=== PATIENT | female | born 1980 | race Caucasian/White ===

== ENCOUNTER 2022-03-15 12:08 | Outpatient (CLI) | payer BC, SELFPAY ==
--- NOTE | ~2022-03-15 | DEXA_ITS ---
Bone Density Report Name: CARMEN GÓMEZ Age: 42 Sex: Female Ethnicity: White Date of : 1980 Indication: postmenopausal; asthma or emphysema; hysterectomy; Referring Provider: Rebecca Rodriguez Study: Bone densitometry was performed. Exam Date: March 15, 2022 Accession number: [id number] Bone Density: Region BMD T-score Z-score Classification AP Spine (L1-L4) 1.200 1.4 1.6 Normal Femoral Neck (Left) 0.928 0.7 1.0 Normal Total Hip (Left) 1.081 1.1 1.3 Normal Femoral Neck (Right) 0.952 0.9 1.2 Normal Total Hip (Right) 1.091 1.2 1.4 Normal Total Hip Mean 1.086 1.2 1.4 Normal World Health Organization criteria for BMD impression classify patients as: Normal (T-score at or above -1.0), Osteopenia (T-score between -1.0 and -2.5), or Osteoporosis (T-score at or below -2.5). 10-year Fracture Risk: FRAX not reported because: All T-scores for Spine Total, Hip Total, Femoral Neck at or above -1.0 Clinical Information Provided by Patient: Is being treated for osteoporosis Has used the following medications: HRT (i.e. estrogen/hormone therapy), Calcium Has the following medical conditions: Asthma or Emphysema, Hysterectomy Patient maximum height was 65.2 Menopause Age: 27 No regular weight bearing exercise Does not regularly consume dairy products Drinks caffeinated beverages Onset of menses at age 14 Number of children 3 Impression: The patient has normal bone mass. Discussion: It is important to ask patients whether they are taking their medications and to encourage continued and appropriate compliance with their osteoporosis therapies to reduce fracture risk. It is also important to review their risk factors and encourage appropriate calcium and vitamin D intakes, exercise, fall prevention and other lifestyle measures. Follow-Up: Consider a repeat BMD and Vertebral Fracture Assessment (VFA) exam in 2 years or sooner if medically necessary, to reassess this patient's status. Reported by: [facility] on 03/15/2022 1:16:00 PM. Reviewed, dictated and finalized at location A. [facility]ITALJodie
--- NOTE | ~2022-03-15 | MM_ITS ---
EXAMINATION: MM screening jame BI w heather HISTORY: Screening mammogram TECHNIQUE: Craniocaudal and mediolateral oblique 3-D tomosynthesis images were obtained and synthetic 2-D images were generated. CAD analysis was submitted and interpreted. COMPARISON: None, baseline BREAST PARENCHYMAL COMPOSITION: The breasts are heterogeneously dense, which may obscure small masses . FINDINGS: RIGHT BREAST: There is no suspicious mass, calcification, or architectural distortion to suggest iveth gnancy. LEFT BREAST: There is focal asymmetry in the middle third of the outer breast. IMPRESSION: 1. Focal asymmetry of the left breast. 2. Additional mammographic views and possible breast ultrasound are recommended. BI-RADS Category 0: Incomplete: Needs additional imaging evaluation. Reviewed, dictated and finalized at location A. IMPRESSION: 1. Focal asymmetry of the left breast. 2. Additional mammographic views and possible breast ultrasound are recommended . BI-RADS Category 0: Incomplete: Needs additional imaging evaluation.
== END 2022-03-15 12:09 ==
PROVIDERS: PCP Advanced Practice Midwife; Visit Provider Advanced Practice Midwife
DX: Z12.31 Encounter for screening mammogram for malignant neoplasm of breast (principal); Z78.0 Asymptomatic menopausal state; M85.80 Other specified disorders of bone density and structure, unspecified site; R92.8 Other abnormal and inconclusive findings on diagnostic imaging of breast
CPT/HCPCS: 77063; 77067; 77080

== ENCOUNTER 2022-03-30 07:42 | Outpatient (CLI) | payer BC, SELFPAY ==
--- NOTE | ~2022-03-30 | MMUS_ITS ---
EXAMINATION: MM diagnostic jame LT w heather, US breast LT limited HISTORY: Focal asymmetry reported in middle third of outer breast on 03/15/2022 screening mammogram TECHNIQUE: Additional 3-D tomosynthesis images of were performed and synthetic 2-D images were genera rolando. CAD analysis was submitted and interpreted. High resolution upper outer and lower-outer quadrant left breast ultrasound was performed. COMPARISON: 03/15/2022 bilateral screening mammogram FINDINGS: MAMMOGRAPHIC FINDINGS: 4 x 5.7 mm circumscribed mass is suggested in the outer mid left breast (coned ML Tomosynthesis image 15/) ULTRASOUND: 3:00 2 cm from nipple: Parallel circumscribed 2.4 x 3.5 x 3.6 mm hypoechoic lesion without internal v ascularity or posterior shadowing No suspicious mass or shadowing is detected. IMPRESSION: 1. No mammographic evidence of malignancy 2. Routine annual mammographic screening is recommended BI-RADS Category 2: Benign finding(s). Reviewed, dictated and finalized at location A. IMPRESSION: 1. No mammographic evidence of malignancy 2. Routine annual mammographic screening is recommended BI-RADS Category 2: Benign finding(s).
== END 2022-03-30 07:43 ==
LOC: MICIMG 07:42
PROVIDERS: PCP Advanced Practice Midwife; Visit Provider Advanced Practice Midwife
DX: R92.8 Other abnormal and inconclusive findings on diagnostic imaging of breast (principal)
CPT/HCPCS: 76642; 77061; 77065; G0279

== ENCOUNTER 2024-04-10 08:26 | Outpatient (CLI) | payer BC, SELFPAY ==
--- NOTE | ~2024-04-10 | MR_ITS ---
EXAMINATION: MR shoulder RT wo con DATE: 04/10/2024 09:21 INDICATION: Right shoulder pain with bicipital tendinitis TECHNIQUE: Magnetic resonance imaging (MRI) of the right shoulder was performed without intravenous c ontrast. Sequences included axial PD-weighted FS FSE, coronal oblique PD-weighted FS FSE, coronal obl ique T2-weighted FS FSE, sagittal PD-weighted FS FSE, and sagittal T1-weighted SE. COMPARISON: None. FINDINGS: Coracoacromial arch: The acromion undersurface is curved in morphology (type II). The coracoacromial ligament is normal. M ild acromioclavicular osteoarthritis. Rotator cuff: Mild tendinopathy with tiny intrasubstance split tear at the superior facet footplate of the distal s upraspinatus tendon. The infraspinatus, teres minor and subscapularis tendons are normal. Normal rota tor cuff muscle bulk and signal. Biceps tendon, glenoid labrum and glenohumeral cartilage: Long head of the biceps tendon is normal. Glenoid labrum is normal. Glenohumeral cartilage is normal. Fluid: Physiologic amount of fluid in the glenohumeral joint and biceps tendon sheath. No loose osteochondr al bodies. No abnormal increased fluid signal in the subacromial/subdeltoid bursa to suggest bursitis . Bones: There is focal marrow edema and mild cystic change underlying the superior facet footplate of the gre ater tuberosity likely related to the supraspinatus tendon disease. Marrow signal is otherwise normal . No fracture or pathologic marrow replacing process. IMPRESSION: 1. Mild supraspinatus tendinopathy with tiny intrasubstance split tear at the superior facet footplat e. Reviewed, dictated and finalized at location B. IMPRESSION: 1. Mild supraspinatus tendinopathy with tiny intrasubstance split tear at the s uperior facet footplate.
== END 2024-04-10 08:27 | disposition home or self-care (01) ==
LOC: ANHIMG 08:33
PROVIDERS: PCP Family Medicine; Visit Provider Physician Assistant Surgical
DX: M75.21 Bicipital tendinitis, right shoulder (principal)
CPT/HCPCS: 73221

== ENCOUNTER 2024-07-24 01:33 | Day surgery (SDC) | payer BC, SELFPAY ==
[2024-07-12 10:24] VITALS: BMI 30.9
--- NOTE | 2024-07-12 10:29 | PC.NURSE ---
Report to the Outpatient Waiting Room, entrance under the green pavilion located off [facility], at time _1030_ on date _[id number]_. Planned Procedure Time: _1230_.? Time changes happen often and if your time is changed the preop area will call you the afternoon before. - You and your visitor will be asked to self-screen and do not enter if you have any COVID symptoms. Please call surgeon if you need to reschedule. - A mask is optional within the hospital at this time. Patients may have clear liquids (water, carbonated beverages, clear teas, apple juice) until 3 hours prior to surgery with a maximum of 20 ounces. - No food from midnight until time of surgery and no smoking Take only the following medications with a SIP of water on the morning of surgery: __Paroxetine and estradiol DO NOT STOP ANY OF YOUR OTHER PRESCRIPTION MEDICATIONS PRIOR TO SURGERY EXCEPT THE FOLLOWING Medications to discontinue per physician ___Diclofenac stop 07-17-2024, Vitamins stop 07-21-2024. Patient is holding Methotrexate per her arthritis Dr's instructions with last dose being on [phone] Please no make-up, nail citizen of [place], hairspray, perfume, deodorant, or body powder the day of surgery.? No jewelry (including any body piercings) or valuables the day of surgery, leave them at home.? Please take a shower or bath the night before, or the morning of, surgery with an antibacterial soap.? Wear comfortable, loose fitting clothing.? . - Jewelry must be removed prior to entering the operating room.? Rings and piercings that are not removed may be cut off. - The hospital will not accept responsibility for valuables.? - Please leave all valuables, including medications, at home the day of surgery. If you are going home after surgery, a licensed otr van cdl truck driver must drive you home.? - NO public transportation without another adult if you receive anesthesia. - We recommend that an adult stay with you for 24 hours following discharge. - We also recommend that you do not drive, make important decision, drink alcoholic beverages, or take any drugs that were not prescribed by your health care provider for at least 24 hours after your discharge time. Follow any additional instructions given to you from your surgeon. Telephone instructions given to _Jc_and asked if any additional questions and then verbalized understanding. Patient advised to call surgeon office or pre surgery nurse liaison [phone] if any additional questions.
[2024-07-24] VITALS (8 sets, daily range): BP systolic 108–130; BP diastolic 68–83; PULSE 66–79; RESP 15–18; TEMP 36.4–36.6; O2SAT 96–100
--- NOTE | 2024-07-24 07:21 | WPDHPUPDATE1 ---
History and Physical Update Update Date/Time: 07/24/24 07:21 History and Physical has been reviewed, including an updated exam of the patient. There are NO changes in the patient's condition. Risks, benefits, and alternatives have been discussed and questions answered. Patient agrees to proceed with procedure.
[2024-07-24] MEDS: LACTATED RINGERS 1,000 ML 30 ML IV CONT ×2 (10:45→12:46)
[2024-07-24] MEDS: EPINEPHrine HCL INJ 1 MG/ML AMPUL IRRIGATION (10:48)
--- NOTE | 2024-07-24 10:57 | WPDANESEPPF ---
Anes - Initial Pre Proc Eval Procedure: Operation Date: 07/24/24 12:30 Proposed Procedures p Right Shoulder Arthroscopic Rotator Cuff Repair with Subacromial Decompression - Jose Enrique Johnson MD Date/Time: 07/24/24 10:57 Surgeon: Jose Enrique Johnson MD Pre Op Diagnosis: Partial Thickness Rot Cuf Tear - Rt side Patient Data Age: 44 Gender: F Height: 1.65 m Weight: 84.5 kg Allergies Allergy/AdvReac Type Severity Reaction Status Date / Time No Known Allergies Allergy Mild Verified 07/24/24 12:17 Home Medications Medication Instructions Recorded Confirmed Type albuterol sulfate 90 mcg/actuation 2 inh inhalation PRN PRN Shortness 10/04/19 07/12/24 History aerosol inhaler (ProAir HFA) Of Breath Or Wheezing estradiol 1 mg tablet 1 mg PO DAILY 11/02/22 07/24/24 History paroxetine HCl 10 mg tablet (Paxil) 10 mg PO DAILY 05/12/23 07/12/24 History cyclobenzaprine 10 mg tablet 10 mg PO TID PRN Spasms 06/04/24 07/12/24 History diclofenac sodium 75 mg 75 mg PO BID 06/04/24 07/24/24 History tablet,delayed release folic acid 1 mg tablet 1 mg PO DAILY 06/04/24 07/12/24 History methotrexate sodium 2.5 mg tablet 15 mg PO WEEKLY 06/04/24 07/12/24 History motvrtrr-vus-isixd ac 400 1 tablet PO DAILY 06/04/24 07/24/24 History mcg-calcium carb 500 mg-vit K1 20 mcg tablet (Women's 50 Plus Multivitamin) omeprazole 40 mg capsule,delayed 40 mg PO DAILY 06/04/24 07/12/24 History release phentermine 37.5 mg tablet 37.5 mg PO DAILY #30 tabs 06/05/24 07/12/24 Rx hydrocodone 5 mg-acetaminophen 325 1 - 2 tablet PO Q4-6H PRN pain #30 07/24/24 Rx mg tablet tabs Patient hx anesthesia problems: none Family hx anesthesia problems: none Results Review: All pre-operative results and documents have been reviewed as part of the pre-operative evaluation. [facility] Past Medical History Medical History Asthma Biceps tendinitis BMI 34.0-34.9,adult COVID-19 long hauler Endometriosis Rotator cuff impingement syndrome of right shoulder Shoulder pain, right Subclinical hyperthyroidism Surgical History Surgical History S/P FR[facility]LIN (total abdominal hysterectomy) Family History Family History Father Lung cancer Mother Hypertension Social History Social History Social History: Smoking packs per day: 1 Smoking cigarettes per day: 20.0 Years smoked: 15 Smoking pack-years: 15.00 Smoking status: Former smoker Tobacco type: cigarettes Second hand tobacco smoke exposure: Yes Smoking end date: 09/11/16 Alcohol intake: current Alcohol use details: Occasionally Substance use: never Substance use type: does not use Do You Feel Safe in your Home?: Yes Lack of Transportation: No Lack of Food: Never True Current Housing: I Have Housing Concerned About Future Housing: No Difficulty Paying Gas/Electric Bills: No Difficulty Paying for Meds: No Currently Unemployed: No Education: High School Diploma/GED Difficulty w/ Childcare or Family Care: No Living arrangements: with family Occupation/Education: occupation 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
[2024-07-24] MEDS: KETOROLAC 15 MG/ML VIAL (*BKC) IV PUSH (11:00)
[2024-07-24] MEDS: ACETAMINOPHEN 500 MG TABLET 1000 MG PO (11:00)
[2024-07-24] MEDS: ceFAZolin 2 GM/D5W 50 ML 2 GM/50 ML BAG IVPB (11:15)
--- NOTE | 2024-07-24 12:00 | WPDANESPNB ---
Anes - Peripheral Nerve Block Date/Time: 07/24/24 12:00 I have discussed with the patient/family/POA the placement of a peripheral nerve block for post-operative pain management, including associated risks, benefits, complications, and side effects. Alternative methods of post-operative analgesia were detailed. Questions were solicited and answers provided to the satisfaction of the patient/family/POA. Time-Out: A pre-procedural Time-Out was completed immediately before starting the procedure and confirmed: Patient Identification, Site, Procedure, Patient Position and the Availability of Requisite Equipment. Clinical Indications: Acute post-operative pain management requested by the operative surgeon. Nerve Block Insertion Note Anes-nerve block: interscalene right Patient position: supine Skin prep: chlorhexidine Needle: 22 gauge, stimulating, insulated echogenic needle. Needle length: 50 mm Technique: ultrasound Injectate: bupivacaine 0.5% with epi 5 mcg/ml (20cc- no epi) Observations: tolerated well Complications: none Procedure start time:: 1107 Procedure end time:: 1111
--- NOTE | 2024-07-24 13:19 | P.OP_ITS ---
Procedure Note - Detailed Date of Procedure 07/24/24 Pre-op Diagnosis Partial Thickness rotator cuff tear right shoulder. Impingement syndrome right shoulder. Post-op Diagnosis Same Procedure Performed Right shoulder arthroscopic rotator cuff repair with subacromial decompression. Surgeon Jose Enrique Johnson MD Ssrs Developer Marycruz Schwab PA-C Anesthesia General and Regional (Interscalene block) Indications Partial-thickness intrasubstance tear noted on MRI with some concern for small bursal side tear. Evidence of external impingement clinically. Failed conservative treatment including injections and physical therapy. Findings Low-grade bursal sided tear at the anterior supraspinatus. Very low-grade articular side tear. Hyperemia of the rotator cuff noted. Evidence of subacromial impingement on the undersurface of the anterolateral acromion and coracoacromial ligament. Given the MRI finding of interstitial tearing as well, the Regeneten implant with 5 CAREY anchors and 2 peek bone anchors, was used to repair the partial-thickness supraspinatus tearing. Subacromial decompression performed. The remaining structures were normal. Description of Procedure Preoperative antibiotics were given. The patient was brought to the operating room. Careful positioning in the beach chair was accomplished. The head neck were carefully positioned. A small bump was placed under the shoulder. The shoulder was prepped and draped in the usual sterile fashion. Examination under anesthesia performed. The shoulder had some laxity but no other significant findings. Standard posterior and anterior arthroscopic portals were established. The articular cartilage and labrum was normal. The biceps was normal. The subscapularis and rotator cuff were essentially normal although there was minimal articular sided fraying at the anterior supraspinatus. Attention was turned to the subacromial space. A complete bursectomy was performed. There was evidence of hyperemia and subacromial impingement. An accessory lateral portal was created. The acromion was clearly visualized. The coracoacromial ligament was released. Careful acromioplasty was performed. Loose bone fragments were carefully irrigated from the joint. An accessory superolateral portal was used for anchor placement. The large Regeneten graft was inserted and deployed. Multiple CAREY anchors were placed medially with good purchase. Bone anchors x2 were placed laterally. The anterior aspect of the supraspinatus adjacent to the biceps was previously marked with a PDS suture to avoid placing a soft tissue anchor in the biceps. The arthroscopic instruments were removed. The wounds were closed with interrupted 4-0 Monocryl suture followed by Steri-Strips. A sterile dressing was applied with a sling. The patient was extubated and brought to the recovery room in stable condition. There were no complications. Implants Regeneten collagen implant. Five CAREY soft tissue anchors. Two peek bone anchors. Estimated Blood Loss 10 Drains No Packing No Pathology None sent Complications No immediate complications Condition Stable Disposition PACU [facility] Billing Surgery - Charge Forward: Surgery Billing
== END 2024-07-24 14:25 | disposition home or self-care (01) ==
PROVIDERS: PCP Family Medicine; Visit Provider Orthopaedic Surgery
PROC: (CPT 29805; principal; 2024-07-24 12:30)
DX: M75.111 Incomplete rotator cuff tear or rupture of right shoulder, not specified as traumatic (principal); M75.41 Impingement syndrome of right shoulder; G89.18 Other acute postprocedural pain; J45.909 Unspecified asthma, uncomplicated; N80.9 Endometriosis, unspecified; E05.90 Thyrotoxicosis, unspecified without thyrotoxic crisis or storm; E66.9 Obesity, unspecified; Z68.30 Body mass index [BMI] 30.0-30.9, adult; Z79.51 Long term (current) use of inhaled steroids; Z79.891 Long term (current) use of opiate analgesic; Z98.890 Other specified postprocedural states; Z87.891 Personal history of nicotine dependence; Z80.1 Family history of malignant neoplasm of trachea, bronchus and lung
CPT/HCPCS: 64415; 29827; 29826; A4565; A9270; C1713; J0171; J0330; J0690; J1100; J1885; J2003; J2250; J2405; J2704; J3010; J7120

== ENCOUNTER 2025-05-28 06:40 | Outpatient (CLI) | payer BC, SELFPAY ==
--- NOTE | ~2025-05-28 | MR_ITS ---
MRI of the right shoulder Technique: Axial proton-density fat-sat images, coronal proton density fat-sat and T2 fat-sat images, and sagittal T1-weighted and T2 fat-sat images were acquired. Clinical History: Contracture Findings: There is [id number] AC joint degenerative change. Coracoclavicular, coracoacromial, and coracohumeral ligaments are intact. There is mild to moderate supraspinatus and infraspinatus tendinosis. No partial or full-thickness tear evident. Subscapularis tendon intact with mild tendinosis. Tendon of long head of the biceps is intact. No labral tear evident. Inferior glenohumeral ligament is intact. No significant degenerative change of the glenohumeral joint. There is minimal glenohumeral joint effusion. There is fluid distention of the subacromial/subdeltoid bursa. No muscle atrophy or edema. Impression: Subacromial/subdeltoid bursitis. Rotator cuff tendinosis without partial or full-thickness tear. Mnrr-gf-[id number] AC joint degenerative change. Reviewed, dictated and finalized at [facility]. Impression: Subacromial/subdeltoid bursitis. Rotator cuff tendinosis without partial or full-thickness tear. Pngf-[id number]-pizwyazh AC joint degenerative change.
--- OUTSIDE RECORDS SUMMARY | 2025-05-28 06:43 | XMS_ITS | Clinical Summary ---
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 Oracio Mei MD Primary Care Provider Allergies No known active allergies Medications albuterol HFA (PROVENTIL HFA,VENTOLIN HFA,PROAIR HFA) 90 mcg/actuation inhaler 2 puffs every 4 (four) hours as needed 4 Active estradioL (ESTRACE) 0.01 % (0.1 mg/gram) vaginal cream INSERT 1 GRAM VAGINALLY 3 TIMES EVERY WEEK 4 Active PARoxetine (PAXIL) 10 mg tablet Take 1 tablet (10 mg total) by mouth daily Active Active Problems Problem Noted Date Diagnosed Date Abnormal mammogram 12/19/2022 Mass of left breast 06/09/2022 Social History Tobacco Use Types Packs/Day Years Used Date Smoking Tobacco: Unknown Tobacco Cessation:Counseling Given: Not Answered Comments Unknown Sex and Gender Information Value Date Recorded Sex Assigned at Not on file 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 Gender Identity Not on file Sexual Orientation Not on file Obstetrics History Last Filed Vital Signs Vital Sign Reading Time Taken Comments Blood Pressure - - Pulse - - Temperature - - Respiratory Rate - - Oxygen Saturation - - Inhaled Oxygen Concentration - - Weight 88.5 kg (195 lb) 01/15/2025 2:59 PM CDT Height 165 cm (5' 4.96) 01/15/2025 2:59 PM CDT Body Mass Index 32.49 01/15/2025 2:59 PM CDT Plan of Treatment Health Maintenance Due Date Last Done Comments Cervical Cancer Screening 1980 Depression Screening 1980 Hepatitis C Screening 1982 DTaP/Tdap/Td Vaccine (1 - Tdap) 1993 Varicella Vaccines (1 of 2 - 13+ 2-dose series) 1995 Hepatitis B Screening 01/23/2000 Regular Well Visit/Exam 18-64 01/23/2000 Pneumococcal vaccine <65 (1 of 2 - PCV) 2001 HPV Vaccines (1 - 3-dose SCD M series) 2009 Covid-19 Vaccine (3 - 2023-2 5 season) 2024 03/10/2021, 02/14/2021 Influenza Vaccine (#1) 2025 Breast Cancer Screening-Mammogram 01/15/2026 01/15/2025, 12/27/2023, 12/13/2022, Additional history exists Procedures Procedure Name Priority Date/Time Associated Diagnosis Comments SCREENING MAMMOGRAM BILATERAL W DONNIE Schedule Routine, Read Routine (OP Routine) 01/15/2025 3:30 PM CDT Abnormal mammogram Mass of left breast, unspecified quadrant from Last 3 Months or Most Recently Relevant to Health Maintenance Results * Screening Mammogram Bilateral W Donnie (01/15/2025 3:30 PM CDT) Anatomical Region Laterality Modality Breast Bilateral Mammography Narrative 01/16/2025 9:46 AM CDT Mammogram Technique: Bilateral Digital Breast Tomosynthesis, Bilateral C-view 2D Screening mammogram. Views obtained: bilateral craniocaudal and bilateral mediolateral oblique. Computer Aided Detection was performed. Mammogram Findings: The present examination has been compared to prior imaging studies performed at [facility] on 06/09/2022, 12/13/2022 and 12/27/2023. There are scattered areas of fibroglandular density. There is no suspicious abnormality in either breast. Impression: There is no mammographic evidence of malignancy. Annual screening mammography is recommended. OVERALL FINAL ASSESSMENT: BI-RADS CATEGORY 1: Negative. Procedure Note Sonja Dennison MD - 01/16/2025 Mammogram Technique: Bilateral Digital Breast Tomosynthesis, Bilateral C-view 2D Screening mammogram. Views obtained: bilateral craniocaudal and bilateral mediolateral oblique. Computer Aided Detection was performed. Mammogram Findings: The present examination has been compared to prior imaging studies performed at [facility] on 06/09/2022, 12/13/2022 and 12/27/2023. There are scattered areas of fibroglandular density. There is no suspicious abnormality in either breast. Impression: There is no mammographic evidence of malignancy. Annual screening mammography is recommended. OVERALL FINAL ASSESSMENT: BI-RADS CATEGORY 1: Negative. Jessica Sinclair NP IMG MAMMO PROCEDURES Final Result from Last 3 Months or Most Recently Relevant to Health Maintenance Insurance [employer] MD [employer] MD Care Teams Security Rep Relationship Specialty Start Date End Date Oracio Mei MD [address] [place] [address] PCP - General Family Medicine 12/20/24 Rebecca Rodriguez NP [address] [place] [address] Nurse Practitioner Gynecology 06/23/23
== END 2025-05-28 06:41 | disposition home or self-care (01) ==
PROVIDERS: PCP Family Medicine; Visit Provider Orthopaedic Surgery
DX: M24.511 Contracture, right shoulder (principal); M19.011 Primary osteoarthritis, right shoulder
CPT/HCPCS: 73221

== ENCOUNTER 2025-08-08 02:16 | Day surgery (SDC) | payer BC, SELFPAY ==
--- NOTE | 2025-07-29 15:23 | SUR.PREOP ---
[facility] has started construction of its new state of the art ER which will open Spring 2026. With this, we anticipate parking may be a challenge for some our surgical patients and families. Parking spaces are limited but are available for all Surgical, obstetrics, and ER patients sharing this lot. If you arrive and find you are having a hard time finding a parking space, please note that we understand the challenges, please drive around the hospital and park near Hospital Entrance 1. When you enter this entrance, you can ask a volunteer to direct or take you back to the surgical waiting area to check in. We appreciate everyone?s understanding of these expected challenges while we build for your future. Report to the Outpatient Waiting Room, entrance under the green pavilion located off [address], at time _1030AM_ on date _08/08/25__. Planned Procedure Time: _1230_.? Time changes happen often and if your time is changed the preop area will call you the afternoon before. - You and your visitor will be asked to self-screen and do not enter if you have any COVID symptoms. Please call surgeon if you need to reschedule. - A mask is optional within the hospital at this time. Patients may have clear liquids (water, carbonated beverages, clear teas, apple juice) until 3 hours prior to surgery with a maximum of 20 ounces. - No food from midnight until time of surgery and no smoking, or chewing tobacco (or any form of nicotine). No chewing gum, candy or mints. Take only the following medications with a SIP of water on the morning of surgery: _cyclobenzaprine and albuterol if needed. DO NOT STOP ANY OF YOUR OTHER PRESCRIPTION MEDICATIONS PRIOR TO SURGERY EXCEPT THE FOLLOWING Hold all vitamins and supplements for 3 days per anesthesiologist. Medications to discontinue per physician leflunomide 2 weeks before and after surgery, consult the provider about diclofenac. Date to take last dose of multivitamin__08/04/25__ Please no make-up, nail yoruba, hairspray, perfume, deodorant, or body powder the day of surgery.? No jewelry (including any body piercings) or valuables the day of surgery, leave them at home.? Please take a shower or bath the night before, or the morning of, surgery with an antibacterial soap.? Wear comfortable, loose fitting clothing.? - Jewelry must be removed prior to entering the operating room.? Rings and piercings that are not removed may be cut off. - The hospital will not accept responsibility for valuables.? - Please leave all valuables, including medications, at home the day of surgery. If you are going home after surgery, a licensed laborer driver must drive you home.? - NO public transportation without another adult if you receive anesthesia. - We recommend that an adult stay with you for 24 hours following discharge. - We also recommend that you do not drive, make important decision, drink alcoholic beverages, or take any drugs that were not prescribed by your health care provider for at least 24 hours after your discharge time. Follow any additional instructions given to you from your surgeon. Telephone instructions given to _Jc__and asked if any additional questions and then verbalized understanding. Patient advised to call surgeon office or pre surgery nurse liaison [phone] if any additional questions.
[2025-07-29 15:34] VITALS: BMI 31.6
[2025-08-08] VITALS (9 sets, daily range): BP systolic 99–119; BP diastolic 49–70; PULSE 67–94; RESP 13–16; TEMP 36.2–37; O2SAT 96–100
--- OUTSIDE RECORDS SUMMARY | 2025-08-08 02:19 | XMS_ITS | Clinical Summary ---
Author Organization [facility] Address [address] [place] [address] Care Team Providers Care Insurance Account Representative Name Role Phone Unavailable Primary Care Provider Unavailabl e Source Comments [facility],non-owned Affiliates and Associated Physician Practices is amultiple site organization consisting of ambulatory clinics and hospital sitesin [place], [place], [place] and [place]. This disclosure is being madepursuant to the Care Everywhere program and may not contain all information available regarding this patient. 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 Gender Identity Not on file Sexual Orientation Not on file Plan of Treatment Health Maintenance Due Date Last Done Comments LIPID TESTING 1982 HIV SCREENING 1997 HEPATITIS C SCREENING 01/18/2000 DTAP/TDAP/TD VACCINES (1 - Tdap) 2001 HEPATITIS B VACCINE (1 of 3 - 19+ 3-dose series) 2001 HPV VACCINE (1 - 3-dose SCDM series) 2009 DEPRESSION SCREENING 10/10/2024 MEDICARE AWV CALENDAR YEAR 2024 PAP SMEAR 12/10/2024 12/10/2021, 12/10/2021 COVID-19 VACCINE ( - 2023-2 5 season) 2025 INFLUENZA VACCINE (#1) 2025 MAMMOGRAM 12/26/2025 12/27/2023, 12/13/2022 ZOSTER VACCINE (1 of 2) 01/23/2032 HIB VACCINE Aged Out No longer eligi ble based on patient's age to complete this topic MENINGOCOCCAL (Group B) VACCINE SHARED DECISION-MAKING Aged Out No longer eligible based on patient's age to complete this topic MENINGOCOCCAL GROUPS A/C/Y/W VACCINE Aged Out No longer eligible b ased on patient's age to complete this topic PNEUMOCOCCAL VACCINE Aged Out No long er eligible based on patient's age to complete this topic Insurance [facility]
--- OUTSIDE RECORDS SUMMARY | 2025-08-08 02:19 | XMS_ITS | Data Portability ---
Author Organization 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 Patient will come back in a year unless there are new symptoms. [email or web address] Not available 04/21/2023 16:58:19 03/28/2025 03/28/2025 Annual gynecological exam performed. Patient will come back in a year unless there are new symptoms. [email or web address] Not available 03/28/2025 15:06:58 Plan of Treatment Reminders Order Date Submit Date Provider Last Modified By Organization Details Last Modified Time Details Appointments None recorded. Lab None recorded. Referral None recorded. Procedures None recorded. Surgeries None recorded. Imaging None recorded. Medication Orders estradiol 1 mg tablet 2024 025 [facility][id number], [address] [place], [place], [id number], 5 15:32:57 estradiol 0.01% (0.1 mg/gram) vaginal cream 2024 025 [facility]28479, [address] [place], [place], [id number], 5 15:35:10 paroxetine 10 mg tablet 2024 025 [facility] #05154, [address] [facility], [place], [place], [id number], 5 15:32:57 Estrace 0.01% (0.1 mg/gram) vaginal cream [address] [facility], [address], [id number], 5 15:08:44 paroxetine 10 mg tablet 2022 023 [facility] #45204, [address], [place], [place], [id number], 3 17:13:24 Estrace 0.01% (0.1 mg/gram) vaginal cream [address] [facility] #14952, [address], [place], [place], [id number], 5 15:08:44 estradiol 1 mg tablet 2022 023 [facility] #39506, [address], [place], [place], [id number], 3 17:45:41 Paxil 10 mg tablet 2022 023 [facility] #73496, [address], [place], [place], [id number], 3 17:42:34 Patient TargetsNo targets recorded. Patient InstructionsNo instructions recorded. Reason for Referral None Reported. Results Created Date Observation Date Name Description Value Unit Range Abnormal Flag Note LastModifiedBy Organization Detail LastModifiedTime 12/11/19 22 12/10/2021 IMAGE GUIDE D PAP AND HPV REGAR DLESS image guided Pap, HPV regardless of Pap result SEE RESULT S BELOW CASE REPOR T: Cytol ogy Gynec ologi rigo Repor t Case: [id number] Autho magalyisraelapryl barron Provi nuvia: Rebecca Cuadra, MALCOLM Gupta cted: 12/10 1637 Order ing Locat ion: [place] [facility] Recei hiram: 12/11 0042 First Scree n: Danilo Portillo, CT Rescr een: Willis Carty ed, CT Speci men: Jase braga Pap - Image d, Cervi x STATE MENT OF ADEQU ACY: Satis facto ry for evalu ation Trans forma tion zone compo nent absen t The absen ce of an endoc ervic al compo nent was confi rmed by an addit vanessa romero. FINAL DIAGN OSIS: Negat hilario for Intra epith elial Lesio n or Caroline hernández (NIL) . Shift in janet sugge stive of bacte rial vagin osis. Elect audrey chen khahn d by Willis Carty ed, CT on 022 at 6:43 PM ----- ----- ----- ----- ----- ----- ----- ----- ----- ----- ----- ----- ----- ----- ----- ----- ----- ---- HPV RESUL TS: HPV mRNA E6/E7 : No HPV mRNA Detec rolando NOTE: This high risk HPV mRNA assay detec ts fourt een high- risk HPV types (16, 18, 31, 33, 35, 39, 45, 51, 52, 56, 58, 59, 66, 68) witho ut diffe renti ation . COMME NT: Note: This speci men was revie wed by a Cytot echno logis t and/o r Patho logis t (as indic ated in this repor t) after evalu ation using the Thinp rep Imagi ng Syste m. CLINI RIGO INFOR MATIO N: Menst rual Statu s: LMP (if appli cable ): Clini rigo Histo ry/Pr eviou s Pap: Type of Neopl chidi (if appli cable ): Signi fican t Clini rigo Findi ngs: Other Histo ry: Hormo day (if appli cable ): PAP EDUCA MARILYN L NOTE: The Pap Test is a scree maria luz test with an inher ent false negat hilario rate. Liqui d-bas ed sampl ing may decre ase, but will not elimi shantanu, false negat hilario resul ts. A negat hilario resul t does not precl ude the prese nce and/o r devel opmen t of disea se, since the prese nce of abnor mal cells in the sampl e depen ds on the locat ion of the lesio n and sampl ing techn ique. Torsten nued regul ar scree maria luz is the best metho d of cance r preve ntion . If repor rolando cytol ogic findi ng do not corre late with physi rigo and/o r histo rical findi ngs, furth er inves tigat ion is recom lisa d, as clini evens warra nted. Not Available [facility] (Lab) [address], [place], [address], 12/16/2021 19:46:28 03/15/20 22 03/15/2022 MAMMO , scree maria luz, bilat eral No observ ation record ed. [email or web address] [facility] [address], [place], [address], 03/25/2022 14:33:20 03/15/20 22 03/15/2022 MAMMO , scree maria luz, bilat eral No observ ation record ed. [email or web address] [facility] [address], [place], [address], 03/25/2022 10:51:18 03/16/20 22 03/15/2022 DEXA No observ ation record ed. CASEY [facility] [address], [place], [address], 03/23/2022 10:24:37 03/30/20 22 03/30/2022 MAMMO , diagn ostic , bilat eral No observ ation record ed. [email or web address] [facility] [address], [place], [address], 04/07/2022 12:57:38 Result Notes None recorded. Problems Name Problem SNOMED Code Status Onset Date Resolution Date Notes Provider Name and Address Organization Details Recorded Time Speciali zehelene medical examinat ion Completed 201111/28/2020 Gynecolo gical Examinat ion;Jensen rded Elsewher e: No Locat ion: [facility] S ource: EHR [employer]ician evelin: N Yulissa ce ID: [id number] Jesus lable Time: 08:30:00 AM Tere Roth [facility] 11:24:41 Screenin g for malignan t neoplasm of cervix Completed 201111/28/2020 Screenin g for malignan t neoplasm s of the cervix;R ecorded Elsewher e: No Locat ion: [facility] S ource: [facility] [employer]ician evelin: N Michelleti ce ID: [id number] Jesus lable Time: 08:30:00 AM Tere [facility] 11:24:35 Female genital organ symptoms [id number] Completed 201111/28/2020 Unspecif ied symptom associat ed with female genital organs;R ecorded Elsewher e: No Locat ion: [facility] S ource: [facility] [employer] evelin: N Michelleti ce ID: [id number] Jesus lable Time: 08:45:00 AM [facility] 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 1 11:24:24 Cyst of ovary [id number] Completed 201211/28/2020 Other and unspecif ied ovarian cyst;Rec orded Elsewher e: No Locat ion: [facility] S ource: [facility] [employer] [facility] [employer] evelin: N Practi ce ID: [id number] Jesus lable Time: 01:30:00 PM Tere [place], [facility] 1 11:24:13 Sexual function painful Completed 201611/28/2020 dyspareu victorino;Jensen rded Elsewher e: No Locat ion: [facility] S ource: [facility] [employer] [facility] [employer] evelin: N Practi ce ID: [id number] Jesus lable Time: 03:15:00 PM Tere [place], [facility] 1 11:24:[address] Concept Completed 201611/28/2020 Well woman check w/o abnormal finding; Recorded Elsewher e: No Locat ion: [facility] S ource: [facility] [employer] evelin: N Practi ce ID: [id number] Jesus lable Time: 03:15:00 PM Tere [place], [facility] [address] 11:24:[address] Concept Completed 201611/28/2020 Encntr for general adult medical exam w/o abnormal findings ;Recorde d Elsewher e: No Locat ion: [facility] S ource: [facility] [employer] evelin: N Practi ce ID: [id number] Jesus lable Time: 03:15:00 PM Tere blanton [facility] 1 11:24:38 Pelvic and perineal pain [id number] Completed 201811/28/2020 Pelvic and perineal pain;Rec orded Elsewher e: No Locat ion: [facility] S ource: E[facility] evelin: N Practi ce ID: [id number] Jesus lable Time: 04:00:00 PM [facility] 11:24:28 Clinical finding Completed 201811/28/2020 Retentio n of urine, unspecif ied;Jensen rded Elsewher e: No Locat ion: [facility] Michelleti ce ID: [id number] Jesus lable Time: 01:15:00 PM Tere Roth [facility] 11:24:22 Increase d frequenc y of urinatio n [id number] Completed 201811/28/2020 Urinary frequenc y;Record ed Elsewher e: No Locat ion: [facility] N Practi ce ID: [id number] Jesus lable Time: 01:15:00 PM [facility] 1 11:24:21 Nocturia [id number] Completed 201811/28/2020 Nocturia ;Recorde d Elsewher e: No Locat ion: [facility] N Practi ce ID: [id number] Jesus lable Time: 01:15:00 PM [facility] 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 11:24:32 Overacti ve urinary bladder [id number] Completed 201811/28/2020 Overacti ve bladder; Recorded Elsewher e: No Locat ion: [facility] S ource: [facility] [employer] [facility] [employer] evelin: N Michelleti ce ID: [id number] Jesus lable Time: 03:15:00 PM Tere blanton [facility] 11:24:26 Lesion of ovary Completed 201811/28/2020 Other ovarian cyst, right side;Rec orded Elsewher e: No Locat ion: [facility] S ource: E[facility] [employer] [facility] [employer] evelin: N Michelleti ce ID: [id number] Jesus lable Time: 04:45:00 PM Tere blanton [facility] 11:24:15 Endometr iosis of ovary [id number] Completed 201811/28/2020 Endometr iosis of ovary;Re corded Elsewher e: No Locat ion: [facility] S ource: [facility] [employer] [facility] [employer] evelin: N Michelleti ce ID: [id number] Jesus lable Time: 09:00:00 AM Tere blanton [facility] 11:24:17 Endometr iosis of pelvic peritone um [id number] Completed 201811/28/2020 Endometr iosis of pelvic peritone um;Recor ded Elsewher e: No Locat ion: [facility] S ource: [facility] [employer] [facility] [employer] evelin: N Michelleti ce ID: [id number] Jesus lable Time: 09:00:00 AM Tere blanton [facility] 11:24:18 Cyst of ovary Completed 201911/28/2020 Unspecif ied ovarian cyst, unspecif ied side;Rec orded Elsewher e: No Locat ion: [facility] S ource: [facility] [employer] [facility] [employer] evelin: N Yulissa ce ID: [id number] Jesus lable Time: 11:30:00 AM Tere blanton [facility] 1 11:24:08 Procedur e on genitour inary system Completed 201911/28/2020 Encounte r for surgical aftercar e followin g surgery on the genitour inary system;R ecorded Elsewher e: No Locat ion: [facility] S ource: [facility] [employer] evelin: N Yulissa ce ID: [id number] Jesus lable Time: 09:30:00 AM Tere blanton [facility] 1 11:24:31 Postoper ative care Completed 201911/28/2020 Encounte r for surgical aftercar e followin g surgery on the genitour inary system;R ecorded Elsewher e: No Locat ion: [facility] S ource: [facility] [employer] [facility] [employer] evelin: N Yulissa ce ID: [id number] Jesus lable Time: 09:30:00 AM Tere blanton [facility] 1 11:24:29 Asthma [id number] Active 2020 [facility] 1 11:37:07 Cigarett e smoker 27057549 Active 2020 [facility] 1 11:54:43 Problem Notes None recorded. Procedures Surgical History Date Name Laterality Status Provider Name and Address Organization Details Recorded Time 024 repair of musculotendinous cuff of shoulder completed Jany Reyna [facility] 03/28/2025 15:11:50 022 Date of Last Pap Smear completed Fernanda Redding [facility] 04/21/2023 17:00:39 007 Total Hysterectomy completed [facility] 11/28/2020 11:57:20 003 ligation of bilateral fallopian tubes completed [facility] 11/28/2020 11:55:36 003 loop electrosurgical excision procedure completed CEZAR Michaud [address], [place], [address], [place] [facility] 03/28/2025 15:31:23 [address] [facility] 11/28/2020 11:57:01 [address] [facility] 11/28/2020 11:56:[address] [facility] 11/28/2020 11:55:58 Imaging Results None recorded. Procedure Notes None recorded. Medical Equipment None Reported. Allergies No known drug allergies Medications Name Sig Start Date Stop Date Status Note LastModified by Organization Details LastModified Time cyclobenz aprine 10 mg tablet TAKE 1 TABLET BY MOUTH EVERY NIGHT AT BEDTIME. active Not Available Not Available No t Available paroxetin e 10 mg tablet TAKE 1 TABLET BY MOUTH EVERY DAY active Not Available Not Available No t Available albuterol (bulk) powder 07/26 completed Prescrib ed Elsewher e: Yes Loca tion: [facility] M odify By: lissa naqviuntsantino DateTime : 09/06/20 12 08:45:00 AM Not Available Not Available Not Available trazodone 50 mg tablet TAKE 1 TABLET BY MOUTH EVERY DAY AT BEDTIME NEEDED FOR INSOMNIA active Not Available Not Available No t Available benzonata te 200 mg capsule TAKE 1 CAPSULE BY MOUTH THREE TIMES DAILY 03/28 completed Not Available Not Available Not Available hydrocodo ne 5 mg-acetam inophen 325 mg tablet TAKE 1 TO 2 TABLETS BY MOUTH EVERY 4-6 HOURS NEEDED. MAX OF 6 TABLETS PER 24 HOURS. 03/28 completed Not Available Not Available Not Available naltrexon e 50 mg tablet TAKE 1/2 TABLET BY MOUTH DAILY 04/21 completed Not Available Not Available Not Available phentermi ne 37.5 mg tablet TAKE 1 TABLET BY MOUTH DAILY. MUST ADMINIST ER 30 MINUTES BEFORE OR 1 TO 2 HOURS AFTER BREAKFAS T 03/28 completed Not Available Not Available Not Available omeprazol e 40 mg capsule,d elayed release TAKE 1 CAPSULE BY MOUTH DAILY active Not Available Not Available No t Available leflunomi de 20 mg tablet active Not Available Not Available Not Available estradiol 1 mg tablet TAKE 1 TABLET BY MOUTH EVERY DAY active Not Available Not Available No t Available methotrex ate sodium 2.5 mg tablet TAKE 10 TABLETS BY MOUTH ONCE WEEKLY. 03/28 completed Not Available Not Available Not Available oseltamiv ir 75 mg capsule TAKE 1 CAPSULE BY MOUTH EVERY 12 HOURS FOR 5 DAYS 03/28 completed Not Available Not Available Not Available dexametha sone 4 mg tablet TAKE 1 TABLET BY MOUTH TWICE DAILY FOR 3 DAYS THEN TAKE 1/2 TABLET BY MOUTH TWICE DAILY FOR 3 DAYS 03/28 completed Not Available Not Available Not Available diclofena c sodium 75 mg tablet,de layed release active Not Available Not Available Not Available codeine 10 mg-guaife nesin 100 mg/5 mL oral liquid TAKE 5 ML BY MOUTH EVERY 6 HOURS NEEDED FOR COLD SYMPTOMS 03/28 completed Not Available Not Available Not Available estradiol 0.01% (0.1 mg/gram) vaginal cream INSERT 1 GRAM VAGINALL Y 2 TO 3 TIMES EVERY WEEK AT BEDTIME active Not Available Not Available No t Available methylpre dnisolone 4 mg tablets in a dose pack FOLLOW PACKAGE DIRECTIO NS 03/28 completed Not Available Not Available Not Available albuterol sulfate HFA 90 mcg/actua tion aerosol inhaler INHALE 2 PUFFS BY MOUTH EVERY 4 HOURS NEEDED active Not Available Not Available No t Available phentermi ne 37.5 mg capsule TAKE 1 CAPSULE BY MOUTH DAILY active Not Available Not Available No t Available bupropion HCl XL 150 mg 24 hr tablet, extended release TAKE 1 TABLET BY MOUTH DAILY 07/13 /2023 completed Not Available Not Available Not Available prednison e 04/21 completed Not Available Not Available Not Available ProAir HFA 03/28 completed Not Available Not Available Not Available Myrbetriq 25 mg tablet,ex tended release take 1 tablet by oral route every day swallowi ng whole with water. Do not crush, chew and/or divide. 11/28 completed Prescrib ed Elsewher e: No Locat ion: Joel ellis [facility] odify By: belkis falk Enco unter DateTime : 09/04/20 03:15:00 PM Not Available Not Available Not Available Spiriva Respimat 1.25 mcg/actua tion solution for inhalatio n inhale 2 puff by inhalati on route every day 08/03 completed Prescrib ed Elsewher e: Yes Loca tion: [facility] odify By: niko brito DateTime : 07/26/20 03:15:00 PM Not Available Not Available Not Available Taytulla 1 mg-20 mcg (24)/75 mg (4) capsule take 1 capsule by oral route every day at the same time each day 08/03 completed Prescrib ed Elsewher e: No Locat ion: [facility] odify By: niko brito DateTime : 08/11/20 04:30:00 PM Not Available Not Available Not Available Wixela Inhub 500 mcg-50 mcg/dose powder for inhalatio n INHALE 1 PUFF BY MOUTH TWICE DAILY 04/21 completed Not Available Not Available Not Available Trelegy Ellipta 200 mcg-62.5 mcg-25 mcg powder for inhalatio n INHALE 1 PUFF INTO LUNGS ONCE DAILY. RINSE MOUTH 03/28 completed Not Available Not Available Not Available Mounjaro 5 mg/0.5 mL subcutane ous pen injector INJECT 5 MG UNDER THE SKIN EVERY WEEK 04/21 completed Not Available Not Available Not Available Mounjaro 2.5 mg/0.5 mL subcutane ous pen injector INJECT SUBCUTAN EOUS ONCE A WEEK 04/21 completed Not Available Not Available Not Available Vitals Date Recorded Body height Body mass index (BMI) Body weight Systolic And Diastolic Provider Name and Address Organization Details Last Updated DateTime 12/10/2021 165.1 cm 38.4 kg/m2 018217.84 g 113/75 mm[Hg] Tere Roth [facility] 12/10/2021 16:01:24 Date Recorded Body height Body mass index (BMI) Body weight Systolic And Diastolic Provider Name and Address Organization Details Last Updated DateTime 03/28/2025 165.1 cm 31.6 kg/m2 58019.55 g 112/71 mm[Hg] Jany Reyna [facility] 03/28/2025 15:07:57 Date Recorded Body height Body mass index (BMI) Body weight Systolic And Diastolic Provider Name and Address Organization Details Last Updated DateTime 04/07/2022 165.1 cm 37.4 kg/m2 054754.28 g 116/68 mm[Hg] Lona Chung [facility] 04/07/2022 13:56:18 Date Recorded Body height Body mass index (BMI) Body weight Systolic And Diastolic Provider Name and Address Organization Details Last Updated DateTime 04/21/2023 165.1 cm 37.4 kg/m2 183090.28 g 124/86 mm[Hg] Fernanda Falksaima [facility] 04/21/2023 16:58:35 Date Recorded Body height Body mass index (BMI) Body weight Systolic And Diastolic Provider Name and Address Organization Details Last Updated DateTime 05/26/2023 165.1 cm 37.4 kg/m2 779739.28 g 130/83 mm[Hg] Fernanda Redding [facility] 05/26/2023 16:49:07 Social History Question Answer Notes LastModified by Organizat ion Details LastModified Time Tobacco Smoking Status Current Every Day Smoker Jany Reyna [facility] 05/26/2023 16:28:08 Do You Have An Advance Directive? No Information n ot available 04/21/2023 Are You Blind Or Do You Have Difficulty Seeing? No Information n ot available 04/21/2023 What Is Your Level Of Caffeine Consumption? Moderate Information not available 04/21/2023 In The 14 Days Before Symptom Onset, Have You Had Close Contact With A Laboratory-confirm ed COVID-19 While That Case Was Ill? No Information n ot available 04/21/2023 In The 14 Days Before Symptom Onset, Have You Had Close Contact With A Person Who Is Under Investigation For COVID-19 While That Person Was Ill? No Information not available 04/21/2023 Have You Been To An Area Known To Be High Risk For COVID-19? No Information not available 04/21/2023 Are You Deaf Or Do You Have Serious Difficulty Hearing? No Information not available 04/21/2023 What Type Of Diet Are You Following? SPECIFIC Information n ot available 04/21/2023 What Is The Highest Grade Or Level Of School You Have Completed Or The Highest Degree You Have Received? [id number] Information not available 04/21/2023 Are There Any Guns Present In Your Home? No Information not available 04/21/2023 Do You Use Protection During Sex? No Information not available 04/21/2023 Do You Use Your Seat Belt Or Car Seat Routinely? Yes Information not available 04/21/2023 Do You Have Smoke And Carbon Monoxide Detectors In Your Home? Yes Information not available 04/21/2023 How Much Tobacco Do You Smoke? No Information not available 04/21/2023 Do You Use Sunscreen Routinely? Yes Information not available 04/21/2023 Have You Used IV Drugs? No Information not available 04/21/2023 Do You Have Difficulty Walking Or Climbing Stairs? No [email or web address] Information not available 05/26/2023 Sex: Unknown Functional Status Question Answer Note LastModified by Organizat ion Details LastModified Time Do you use any illicit or recreational drugs? No Information not available 04/21/2023 What is your level of alcohol consumption? Occasional Information not available 04/21/2023 Do you or have you ever used smokeless tobacco? Never used smokeless tobacco Information not available 05/26/2023 Are you able to walk independently without assistance or assistive devices? [email or web address] Information not available 04/21/2023 Are you able to care for yourself independently? Yes [email or web address] Information not available 05/26/2023 What is your occupation? [employer] Information not available 04/21/2023 Do you have difficulty dressing, bathing, grooming, or toileting? No [email or web address] Information not available 05/26/2023 What is your exercise level? Moderate Information not available 04/21/2023 Mental Status Question Answer Note LastModified by Organization D etails LastModified Time Do you feel stressed (tense, restless, nervous, or anxious, or unable to sleep at night)? [id number] Information not available 04/21/2023 Family History Relationship Description Onset Age of this Age Resolved Age Notes LastModified by Organization Details LastModified Time Father Asthma [email or web address] Not available 0 11/28/2020 11:53:34 Father Malignant neoplasm of lung [email or web address] Not available 2024 14:41:37 Maternal Grandmother Malignant neoplasm of lung [email or web address] Not available 2024 14:41:37 Mother Asthma [email or web address] Not available 0 11/28/2020 11:54:02 Mother Disorder of thyroid gland [email or web address] Not available 2020 11:54:15 Medical History Condition Response Allergies (Food, seasonal, environmental ) N Other N Breast Cancer N Drug/Latex Allergies/Reactions N Blood Transfusion N Dermatologic Disorders N Lung Disease N Defects or Inherited Disease N Breast Problem N Gestational Diabetes N Hematologic disorders N Anesthesia Complications N History of STI N Deep Vein Thrombosis N Polycystic ovary syndrome N Anxiety Disorder N Autoimmune disease N Arthritis Y Infertility N Polyps N Acid Reflux (GERD) N History of abnormal pap N Cancer N Stroke N Varicosities N Neurologic/Epilepsy N Endometriosis N High Cholesterol N Headaches N Fibromyalgia N Kidney Disease N Heart Problems N Kidney or Bladder Problems N Thyroid Problems N GI Problems N Eating Disorder N Anemia N Art (IVF or FET) N Psychiatric Illness N Ovarian Cancer N Diabetes N Pulmonary (TB, Asthma) N Hepatitis/Liver Disease N No Past Medical History N Eczema N Urinary Tract Infection N Abuse/Domestic Violence N Asthma Y Trauma/Violence N Depression/ depression N Heart Disease N Pre-Eclampsia N Hypertension N Osteoporosis N Thrombophilias N Gynecological History Statement/Question Response Abnormal Pap N Date of Last Mammogram Date of LMP On BCP's at Conception? N N Was last menstrual period normal N STIs/STDs N HPV Vaccine N Current Control Method Hysterectom y Age at First Child 17 Are cycles usually normal N Date of Last Colonoscopy Sexually Active? Y Menses Monthly N Date of DEXA bone scan Age of first menstrual cycle 14 Date of Last Pap Smear 12/10/2021 Sexual Problems? Y LMP Unknown Obstetrics History GPAL:G 4 P 3 0 1 3 Type Value Full Term 3 Spontaneous 1 Living 3 Total 4 Past Encounters Encounter ID Performer Location Encounter Start Date Encounter Closed Date Diagnosis/Indication Diagnosis SNOMED-CT Code Diagnosis ICD10 Code Diagnosis IMO Codes Diagnosis Note [id number] Rebecca Rodriguez CNM [facility] [address] [address] 12/01/2020 17:19:46 12/01/2020 18:10:21 Gynecologic examination [id number] Z01.419 Take Calcium with Vitamin D 1200mg daily if not receiving in daily diet. It is strongly advised to have an annual flu shot and up can obtain at most pharmacies . If you have not had a TDap shot in the last 10 years you should obtain one as well. Discussed with patient & provided with informatio n regarding Gardisil vaccine to prevent the 4 strains for HPV that cause cervical cancer if under age 26. Encourage safe sexual practices, to use condoms and limit partners if not already in a monogamous relationsh ip. Do monthly self breast exams. Have mammogram yearly or every other year depending on family history. BRCA testing is now available for patients with strong genetic history of female cancer. If interested contact the office. Engage in daily exercise of low impact aerobic exercise 45-60 minutes 4-5 times weekly. Avoid tobacco and illicit drugs as well as using moderation with alcohol intake less than 1-2 8 oz beverages daily. This lifestyle behavior pattern will lead to less health conditions and longer life span. If BMI greater than 25 weight watchers or dietary consult advised. Doing well on estradiol and wants to continue. Ok per Dr Singer. Aware of risk vs benefit. Patient received above instructio ns, and questions have been answered. If you have any questions please call or respond to this email. Patient was made aware of the patient portal and may obtain a paper copy of today's plan if desired. [id number] Rebecca Rodriguez CNM [facility] [address] [address] 12/10/2021 15:50:08 12/11/2021 17:23:38 Gynecologic examination [id number] Z01.419 Z11.51 Take Calcium with Vitamin D 1200mg daily if not receiving in daily diet. It is strongly advised to have an annual flu shot and up can obtain at most pharmacies . If you have not had a TDap shot in the last 10 years you should obtain one as well. Discussed with patient & provided with informatio n regarding Gardisil vaccine to prevent the 4 strains for HPV that cause cervical cancer if under age 26. Encourage safe sexual practices, to use condoms and limit partners if not already in a monogamous relationsh ip. Do monthly self breast exams. Have mammogram yearly or every other year depending on family history. BRCA testing is now available for patients with strong genetic history of female cancer. If interested contact the office. Also encouraged bone density. Order given for mammogram and bone density. Plans to schedule after 42th birthday. Engage in daily exercise of low impact aerobic exercise 45-60 minutes 4-5 times weekly. Avoid tobacco and illicit drugs as well as using moderation with alcohol intake less than 1-2 8 oz beverages daily. This lifestyle behavior pattern will lead to less health conditions and longer life span. If BMI greater than 25 weight watchers or dietary consult advised. Doing well on estradiol and wants to continue. Aware of risk vs benefit. Patient received above instructio ns, and questions have been answered. If you have any questions please call or respond to this email. Patient was made aware of the patient portal and may obtain a paper copy of today's plan if desired. [id number] Rebecca Rodriguez CNM [facility] [address],[facility] [place] [address] 04/07/2022 13:52:09 04/07/2022 14:30:34 Mass of left breast [id number] N63.20 *NO CHARGE VISIT* This was a finding on screening mammogram. Overall appears benign based on imaging only and does not have significan t family history but is on hrt. We are able to palpate today. Pt agrees to see breast specialist . Will send message to schedule consult. Pt will call us if she has not heard anything about appointmen t date and time within 1 week. [id number] CEZAR Michaud [facility] [address] [address] 04/21/2023 16:42:33 04/21/2023 17:53:58 Gynecologic examination [id number] Z01.419 Suggested Calcium with Vitamin D 1200-1500m g daily. Patient advised to get an annual flu shot in the fall and she could obtain at [facility] or [facility] care clinic. Also to obtain TDap vaccinatio n if you have not had one in the last 10 years. Recommend yearly mammograms . Encouraged monthly self breast exams. Encourage safe sexual practices, to use condoms and limit partners if not already in a monogamous relationsh ip. Engage in daily exercise of low impact aerobic exercise 45-60 minutes 4-5 times weekly. Avoid tobacco and illicit drugs as well as using moderation with alcohol intake less than 1-2 8 oz beverages daily. This lifestyle behavior pattern will lead to less health conditions and longer life span. If BMI greater than 25 weight watchers or dietary consult advised. All questions have been answered. Patient appears to understand informatio n, but if you have any questions please call or respond to this email. WWEhyst 2006 for endometrio sis (non -cancerous indication s)BSO in 2019 for ovarian cyston estradiol 1mg daily. Refills sent x 12 months. R/B discussed, denies any contraindi cationshas noticed increased irritabili ty, increased hot flashes, anxiety. We discussed options. Rx for paxil. R/B/A discussed. Precaution s reviewed (if thoughts of harming self or others occur call 911/seek help immediatel y)vaginal dryness, pain with IC. Rx estrace cream. Crisco twice dailymammo gram UTDUTD with PCPRTC in 4 weeks for med check Time spent in visit is a total of 45 mins with at least 50% of visit consisting of counseling and review of plan of care. Menopausal flushing 1983 78304 N95.1 Dyspareunia 29535758 N94 .10 Anxiety 29229144 F41.9 Hormone re placement therapy [id number] Z79.890 [id number] CEZAR Michaud [facility] [address] [address] 05/26/2023 16:27:52 05/27/2023 12:28:18 Dyspareunia [id number] N94.10 Patient is here today for a medicaton check She voices goals of therapy have been met with use of this therapy. She denies neg side effects. She is eating, drinking, sleeping well; moods are stable Appropriat e to continue this medication . Dryness and pain with IC has improved. Continue estrace cream 3x per weekcrisco twice dailyAnxie ty has improved with paxil, would like to continuere fills sentprecau tions reviewedRT C in 1 year or sooner if needed Anxiety 44428493 F41.9 [id number] CEZAR Michaud [facility] [address] [address] 03/28/2025 14:41:12 03/28/2025 15:38:15 Gynecologic examination 47413889 Z01.112 [id number] WWEPap - UTD/not indicated todaySTI screen - declinedMa mmogram - UTD, due olo n cancer screening - n/aRoutine labs - UTD/PCPRTC in 1 yr or sooner if needed Suggested Calcium with Vitamin D daily. Patient advised to get an annual flu shot in the fall and she could obtain at local pharmacy. Also to obtain TDap vaccinatio n if you have not had one in the last 10 years. Recommend yearly mammograms . Encouraged monthly self breast exams. Encourage safe sexual practices, to use condoms and limit partners if not already in a monogamous relationsh ip. Engage in regular exercise. Avoid tobacco and illicit drugs. This lifestyle behavior pattern will lead to less health conditions and longer life span. If BMI greater than 25 dietary consult advised. All questions have been answered. Hormone re placement therapy [id number] Z79.890 Doing well on ERT and paxil for VMS/menopa usal symptomsva ginal estrogen cream which has improved dryness/dy spareuniar efills sent, r/b/a reviewed Anxiety [id number] F41.9 Health Concerns Section Related Observation LastModified by Organization Detai ls LastModified Time None Recorded Concern Status LastModified by Organization Details LastModified Time None Recorded Advance Directives Directive N: Payers Insurance Date Sequence Insurance Name Policy Number Policy Chan Covered Member ID Chan Member ID Guarantor Name 03/28/2025 1 [facility] ([id number]) [id number] Jc Cano [id number] Cano Notes Date Note Type Note Provider Name and Address Organization Details Recorded Time 2 text/html Annual GYNReported by PatientGenitourinary symptomsFor urinary symptoms, patient reportsno hematuriaandno incontinence. For vulva, patient reportsno genital lesion. For vagina, patient reportsnormal vaginal discharge.Breast symptomsFor breast, patient reportsno breast pain,no breast lump, andno nipple discharge.Endocrine symptomsFor sexual complaints, patient reportsno sexual complaints,no pain during intercourse, andnormal libido. For menopausal symptoms, patient reportsno menopausal symptomsandnormal vaginal lubrication.Psychological symptomsFor psychological symptoms, patient reportsno depression,no anxiety, andno pmdd. Rebecca blanton [facility] 12/13/2021 22:30:42 2 text/html NO CHARGE VISIT Breast lump on screening mammogram. Rebecca blanton [facility] 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 For vaginal bleeding, patient reportshistory of menopause having occurredandno history of post menopausal bleeding. For urinary symptoms, patient reportsno hematuria,no incontinence,no nocturia, andno urinary frequency. For vulva, patient reportsno genital lesionandno vulvar atrophy. For vagina, patient reportsnormal vaginal dischargeandno vaginal atrophy.Breast symptomsFor breast, patient reportsno breast lump,no nipple discharge, andno breast pain.Psychological symptomsFor sexual complaints, patient reportsno sexual complaints. For psychological symptoms, patient reportsno depressionandno anxiety.Preventative measuresFor preventive measures, patient reportsencourage regular mammograms starting age 40,encourage self breast examination,encourage regular exercise,encourage no tobacco use, andmammogram performed within the past year.hot flashes, irritability, increased anxiety. Never thoughts of harming herself or others CEZAR Michaud [address], [place], [address], [facility] 04/21/2023 17:46:47 3 text/html 43yopresents for med checkstarted paxil at [facility] for management of hot flashes and anxietyestrace cream for vaginal drynessdoing SO much better. No longer having any hot flashes, anxiety has improvedno negative SEno KIM CEZAR Michaud [address], [place], [address], [facility] 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 For vaginal bleeding, patient reportshistory of menopause having occurredandno history of post menopausal bleeding. For urinary symptoms, patient reportsno hematuria,no incontinence,no nocturia, andno urinary frequency. For vulva, patient reportsno genital lesionandno vulvar atrophy. For vagina, patient reportsnormal vaginal dischargeandno vaginal atrophy.Breast symptomsFor breast, patient reportsno breast lump,no nipple discharge, andno breast pain.Psychological symptomsFor sexual complaints, patient reportsno sexual complaints. For psychological symptoms, patient reportsno depressionandno anxiety.h/o hyst, BSO for non-cancerous indications (endometriosis, ovarian cyst)on estradiol 1mg and paxil daily for VMS (controlling cyst)mammogram UTDh/o LEEP in 2002, normal paps sincelast pap 2021 : wnl CEZAR Michaud [address], [place], [address], [facility] 03/28/2025 15:37:10 OBGyn Episode Ob Episode Information Episode Created Date Number of Fetuses Patient Bloodtype Patient rh Status Prepregnancy Weight lbs Domestic Partner Domestic Partner Phone Father Name Shipping Manager Status 11/28/19 21 1 CLOSED Fetus Data First Name Last Name Admitted to NICU Weight (g) Sex Living Outcome Pediatric Complications Fetus ID Race Codes Race Delivery Type Full Term [id number] Repeat Jose Luis Calculation Initial Jose Luis Date Initial Exam Date Initial Exam Provider Initial Ultrasound Date Last Menstrual Period Date Ultra Sound Weeks Gestation 0 Eighteen To Twenty Week Jose Luis Update Ultra Sound Date Fundal Height At Umbil Quickening Date Ultra Sound Latest Weeks Gestation Final Jose Luis Confirmed By Final Jose Luis Confirmed Date Final Jose Luis Date Ultra Sound Latest Days Gestation 0 0 Menstrual History Last Menstrual Date Menses Monthly On Bcp Conception Prior Menses Frequency Hcg Plus Date Menarche Onset Age Delivery Information Delivery Date Delivery Type Labor Anesthesia Weeks Gestation Incision Type Labor Labor Length Hrs Delivered By Post Complications Tubal Sterilization Discharge Date Comments 3 35 Discharge Information Feeding Method Contraceptive Method Maternal HG B and HCT Levels Ob Episode Information Episode Created Date Number of Fetuses Patient Bloodtype Patient rh Status Prepregnancy Weight lbs Domestic Partner Domestic Partner Phone Father Name Shipping Manager Status 11/28/19 21 1 CLOSED Fetus Data First Name Last Name Admitted to NICU Weight (g) Sex Living Outcome Pediatric Complications Fetus ID Race Codes Race Delivery Type [id number] Primary Jose Luis Calculation Initial Jose Luis Date Initial Exam Date Initial Exam Provider Initial Ultrasound Date Last Menstrual Period Date Ultra Sound Weeks Gestation 0 Eighteen To Twenty Week Jose Luis Update Ultra Sound Date Fundal Height At Umbil Quickening Date Ultra Sound Latest Weeks Gestation Final Jose Luis Confirmed By Final Jose Lius Confirmed Date Final Jose Luis Date Ultra Sound Latest Days Gestation 0 0 Menstrual History Last Menstrual Date Menses Monthly On Bcp Conception Prior Menses Frequency Hcg Plus Date Menarche Onset Age Delivery Information Delivery Date Delivery Type Labor Anesthesia Weeks Gestation Incision Type Labor Labor Length Hrs Delivered By Post Complications Tubal Sterilization Discharge Date Comments 7 Discharge Information Feeding Method Contraceptive Method Maternal HG B and HCT Levels Ob Episode Information Episode Created Date Number of Fetuses Patient Bloodtype Patient rh Status Prepregnancy Weight lbs Domestic Partner Domestic Partner Phone Father Name Shipping Manager Status 11/28/19 21 1 CLOSED Fetus Data First Name Last Name Admitted to NICU Weight (g) Sex Living Outcome Pediatric Complications Fetus ID Race Codes Race Delivery Type , Spontane ous 7988 Jose Luis Calculation Initial Jose Luis Date Initial Exam Date Initial Exam Provider Initial Ultrasound Date Last Menstrual Period Date Ultra Sound Weeks Gestation 0 Eighteen To Twenty Week Jose Luis Update Ultra Sound Date Fundal Height At Umbil Quickening Date Ultra Sound Latest Weeks Gestation Final Jose Luis Confirmed By Final Jose Luis Confirmed Date Final Jose Luis Date Ultra Sound Latest Days Gestation 0 0 Menstrual History Last Menstrual Date Menses Monthly On Bcp Conception Prior Menses Frequency Hcg Plus Date Menarche Onset Age Delivery Information Delivery Date Delivery Type Labor Anesthesia Weeks Gestation Incision Type Labor Labor Length Hrs Delivered By Post Complications Tubal Sterilization Discharge Date Comments 1 7 Discharge Information Feeding Method Contraceptive Method Maternal HG B and HCT Levels Ob Episode Information Episode Created Date Number of Fetuses Patient Bloodtype Patient rh Status Prepregnancy Weight lbs Domestic Partner Domestic Partner Phone Father Name Shipping Manager Status 11/28/19 21 1 CLOSED Fetus Data First Name Last Name Admitted to NICU Weight (g) Sex Living Outcome Pediatric Complications Fetus ID Race Codes Race Delivery Type [phone] F [id number] Repeat Jose Luis Calculation Initial Jose Luis Date Initial Exam Date Initial Exam Provider Initial Ultrasound Date Last Menstrual Period Date Ultra Sound Weeks Gestation 0 Eighteen To Twenty Week Jose Luis Update Ultra Sound Date Fundal Height At Umbil Quickening Date Ultra Sound Latest Weeks Gestation Final Jose Luis Confirmed By Final Jose Luis Confirmed Date Final Jose Luis Date Ultra Sound Latest Days Gestation 0 0 Menstrual History Last Menstrual Date Menses Monthly On Bcp Conception Prior Menses Frequency Hcg Plus Date Menarche Onset Age Delivery Information Delivery Date Delivery Type Labor Anesthesia Weeks Gestation Incision Type Labor Labor Length Hrs Delivered By Post Complications Tubal Sterilization Discharge Date Comments 2 Discharge Information Feeding Method Contraceptive Method Maternal HG B and HCT Levels
--- OUTSIDE RECORDS SUMMARY | 2025-08-08 02:19 | XMS_ITS | Clinical Summary ---
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 There [...] compared to prior imaging studies performed at [facility] on 06/09/2022, 12/13/2022 and 12/27/2023. There are scattered areas of fibroglandular density. There is no suspicious abnormality in either breast. Impression: There is no mammographic evidence of malignancy. Annual screening mammography is recommended. OVERALL FINAL ASSESSMENT: BI-RADS CATEGORY 1: Negative. Jessica Sinclair NP IMG MAMMO PROCEDURES Final Result from Last 3 Months or Most Recently Relevant to Health Maintenance [place] [employer] [place] [employer] [place] Care Teams Frame Stripper And Crusher Relationship Specialty Start Date End Date Oracio Mei MD [address] [place] [address] PCP - General Family Medicine 12/20/24 Rebecca Rodriguez NP [address] [place] [address] Nurse Practitioner Gynecology 06/23/23
[2025-08-08] MEDS: ACETAMINOPHEN 500 MG TABLET 1000 MG PO (10:45)
[2025-08-08] MEDS: LACTATED RINGERS 1,000 ML 30 ML IV CONT ×2 (10:50→15:08)
[2025-08-08] MEDS: KETOROLAC 15 MG/ML VIAL (*BKC) IV PUSH (10:55)
--- NOTE | 2025-08-08 13:06 | WPDHPUPDATE1 ---
History and Physical Update Update Date/Time: 08/08/25 13:06 History and Physical has been reviewed, including an updated exam of the patient. There are NO changes in the patient's condition. Risks, benefits, and alternatives have been discussed and questions answered. Patient agrees to proceed with procedure.
--- NOTE | 2025-08-08 13:27 | WPDANESEPPF ---
Anes - Initial Pre Proc Eval Procedure: Operation Date: 08/08/25 12:30 Proposed Procedures p Right Shoulder Arthroscopic Subacromial Decompression with Extensive Debridement - Jose Enrique Johnson MD Date/Time: 08/08/25 13:27 Surgeon: Jose Enrique Johnson MD Pre Op Diagnosis: rt rot cuff tendonitis, impingement syndrome Patient Data Age: 45 Gender: F Height: 1.65 m Weight: 84.5 kg Last Vital Signs Temp 98.6 F 08/08/25 10:25 Pulse 77 08/08/25 10:25 Resp 16 08/08/25 10:25 BP 108/65 08/08/25 10:25 Pulse Ox 100 08/08/25 10:25 O2 Del Method Room Air 08/08/25 10:25 Allergies Allergy/AdvReac Type Severity Reaction Status Date / Time No Known Allergies Allergy Mild Verified 07/29/25 15:31 Home Medications ?Medication ?Instructions ?Recorded ?Confirmed ?Type albuterol sulfate 90 mcg/actuation 2 inh inhalation PRN PRN Shortness 10/04/19 07/29/25 History aerosol inhaler (ProAir HFA) Of Breath Or Wheezing estradiol 1 mg tablet 1 mg PO DAILY 11/02/22 08/08/25 History paroxetine HCl 10 mg tablet (Paxil) 10 mg PO DAILY 05/12/23 08/08/25 History cyclobenzaprine 10 mg tablet 10 mg PO TID PRN Spasms 06/04/24 07/29/25 History diclofenac sodium 75 mg 75 mg PO BID 06/04/24 08/08/25 History tablet,delayed release bjoruhgf-woe-qvpkm ac 400 1 tablet PO DAILY 06/04/24 08/08/25 History mcg-calcium carb 500 mg-vit K1 20 mcg tablet (Women's 50 Plus Multivitamin) omeprazole 40 mg capsule,delayed 40 mg PO DAILY 06/04/24 08/08/25 History release leflunomide 10 mg tablet 10 mg PO DAILY 12/19/24 08/08/25 History fluticasone fur. 200 mcg-umeclid 1 inh inhalation DAILY 06/19/25 08/08/25 History 62.5 mcg-vilant 25 mcg inhalat.powder (Trelegy Ellipta) trazodone 50 mg tablet 50 mg PO QHS PRN insomnia #30 tabs 06/26/25 07/29/25 Rx cetirizine 10 mg tablet (24Hour 10 mg PO DAILY PRN allergies 07/29/25 07/29/25 History Allergy) hydrocodone 5 mg-acetaminophen 325 1 - 2 tablet PO Q4-6H PRN pain 7 08/08/25 Rx mg tablet days #30 tabs Patient hx anesthesia problems: none Family hx anesthesia problems: none Results Review: All pre-operative results and documents have been reviewed as part of the pre-operative evaluation. 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 hauler Subclinical hyperthyroidism BMI 34.0-34.9,adult Endometriosis Asthma Surgical History Surgical History Status post right rotator cuff repair (~07/24/24) with subacromial decompression S/P FR[place]LIN (total abdominal hysterectomy) Family History Family History Father Lung cancer Mother Hypertension Social History Social History Social History: Smoking packs per day: 1 Smoking cigarettes per day: 20.0 Years smoked: 17 Smoking pack-years: 17.00 Smoking status: Former smoker Tobacco type: cigarettes Second hand tobacco smoke exposure: Yes Smoking end date: 09/11/16 Alcohol intake: current Alcohol use details: 5/month Substance use: never Substance use type: does not use Do You Feel Safe in your Home?: Yes Lack of Transportation: No Lack of Food: Never True Current Housing: I Have Housing Concerned About Future Housing: No Difficulty Paying Gas/Electric Bills: No Difficulty Paying for Meds: No Currently Unemployed: No Education: High School Diploma/GED Difficulty w/ Childcare or Family Care: No Living arrangements: with family Occupation/Education: occupation 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[employer] Gender identity (if verbalized by the patient): Female Sexual Orientation (if Verbalized by the Patient): Straight or Heterosexual Spiritual care concerns: No Anes - Eval Final PreProcedure Day of Procedure 08/08/25 13:27 Patient weight: obese Heart: regular rate and rhythm Lungs: clear to auscultation Airway: Mallampati scale class II Neurological: alert and oriented Last oral intake: >/= 8 hours ASA classification: II Emergent: no Anesthetic plan: proceed Anesthesia type and monitoring: general ETT and standard monitoring Results Review: All pre-operative results and documents have been reviewed as part of the pre-operative evaluation. Informed Consent: The patient's anesthetic plan and its attendant risks and benefits were discussed with the patient/family/POA. Questions were solicited and answers provided to the satisfaction of the patient/family/POA.
[2025-08-08] MEDS: ceFAZolin 2 GM in SODIUM CHLORIDE 0.9% IV 50 ML 100 ML IVPB (13:35)
[2025-08-08] MEDS: EPINEPHrine HCL INJ 1 MG/ML AMPUL IRRIGATION (14:14)
[2025-08-08] MEDS: BUPIVACAINE/EPINEPHRINE 0.5% 50 ML VIAL 30 ML INFILTRATE (14:14)
--- NOTE | 2025-08-08 15:24 | P.OP_ITS ---
Procedure Note - Detailed Date of Procedure 08/08/25 Pre-op Diagnosis Right shoulder rotator cuff tendinitis and impingement status post rotator cuff repair with collagen patch. Post-op Diagnosis Same Procedure Performed Right shoulder arthroscopic limited debridement with subacromial decompression Surgeon Jose Enrique Johnson MD Test Tech Marycruz Schwab PA-C Anesthesia General Indications Persistent pain over 1 year status post Regeneten for partial-thickness rotator cuff tear. Findings A portion of the Regeneten graft was not adhered to the supraspinatus and extending posteriorly towards the infraspinatus. There was good hyperemia and healing of the surrounding tissue and graft. The partial and that was not adhered was removed with the arthroscopic shaver. The remaining tendon appeared healthy. The anterior portion appeared to have fused with the graft appropriately. There was mild impingement on the undersurface of the lateral most aspect of the acromion which was treated with gentle acromioplasty. Description of Procedure Preoperative antibiotics were given. The patient was brought to the operating room. Careful positioning in the beach chair was accomplished. The head neck were carefully positioned. A small bump was placed under the shoulder. The shoulder was prepped and draped in the usual sterile fashion. Examination under anesthesia performed. There were no abnormal findings on examination. Standard posterior and anterior arthroscopic portals were established. Glenohumeral joint appeared normal. The undersurface of the rotator cuff supraspinatus had mild hyperemia posteriorly. The anterior supraspinatus articular sided partial tear was healed. Attention was turned to the subacromial space. An accessory lateral portal was created. The acromion was clearly visualized. The undersurface of the lateral acromion was cleared with a radiofrequency probe. The prominent anterolateral bone was removed with the arthroscopic bur. There was an obvious and distinct flap of tissue that appeared to be delaminated and peeling away from the more posterior superior rotator cuff. The flap was debrided with the arthroscopic shaver. Two of the remaining, but nearly completely degraded CAREY anchors were debrided as well. A lateral peek anchor was slightly prominent and was impacted flush with the bone. Anteriorly the Regeneten implant appeared indistinguishable from normal tissue. This was the region of the partial-thickness bursal side cuff previously. After debridement the superior cuff tissue appeared very healthy, vascular, and nearly normal. The arthroscopic instruments were removed. The wounds were closed with interrupted 4-0 Monocryl suture followed by Steri-Strips. A sterile dressing was applied with a sling. The patient was extubated and brought to the recovery room in stable condition. There were no complications. Physician real estate legal assistant, Marycruz Shipman PA-C, required for surgery; including patient positioning, draping, arthroscopic camera operation, maintaining instrument position, wound closure, and dressing and sling placement. Estimated Blood Loss 10 Drains No Packing No Pathology None sent Complications No immediate complications Condition Stable Disposition PACU [facility] Billing Surgery - Charge Forward: Surgery Billing
[2025-08-08] MEDS: fentaNYL CITRATE INJ (*CRX) 100 MCG/2 ML VIAL 25 MCG IV PUSH ×4 (15:27→15:51)
[2025-08-08] MEDS: oxyCODONE HCL (*CRX) 5 MG TAB IR PO (16:29)
== END 2025-08-08 16:55 | disposition home or self-care (01) ==
PROVIDERS: PCP Family Medicine; Visit Provider Orthopaedic Surgery
PROC: (CPT 29805; principal; 2025-08-08 12:30)
DX: M75.41 Impingement syndrome of right shoulder (principal); Z87.891 Personal history of nicotine dependence; E66.9 Obesity, unspecified; Z68.31 Body mass index [BMI] 31.0-31.9, adult
CPT/HCPCS: 29822; J0690; A4565; A9270; J0166; J1100; J1171; J1885; J2003; J2250; J2405; J2704; J3010; J7120